=== PATIENT | female | born 1995 ===

== ENCOUNTER → 2024-04-04 14:59 | Outpatient (CLI) | payer BC, SELFPAY | PROVIDERS: Visit Provider Nurse Practitioner Family | DX: R30.0 Dysuria (principal); N94.9 Unspecified condition associated with female genital organs and menstrual cycle | CPT/HCPCS: 87086; 87210 ==

== ENCOUNTER → 2024-05-09 16:22 | Outpatient (CLI) | payer OTHER, SELFPAY | PROVIDERS: PCP Student in an Organized Health Care Education/Training Program; Referring Provider Internal Medicine; Visit Provider Internal Medicine | DX: Z23 Encounter for immunization (principal) | CPT/HCPCS: 90471; 90656 ==

== ENCOUNTER → 2024-07-01 07:04 | Outpatient (CLI) | payer OTHER, SELFPAY ==
--- NOTE | 2024-07-01 | DI.ECHO.S_ITS ---
[place] [facility] : : [address] : : [place] : : [id number] : : Phone: [phone] Echocardiogram Report + + :Name: ALLY HOLLINGSWORTH Study Date: 07/01/2024 Height: 64 in : :[facility] ReadingLocation: Weight: 135 lb : : Gender: Female BSA: 1.7 m2 : :: 1995 Age: 28 yrs BP: 122/84 mmHg: :Reason For Study: CARDIAC MURMUR : :Ordering Physician: : :VIJI LUCIA MD Performed By: Selam Mott : :Referring: VIJI LUCIA : + + Interpretation Summary 1. Normal LV contractility. EF of 55-60%. No WMA. No LVH. Normal diastolic function 2. Normal RV contractility. 3. Normal chamber sizes. 4. Trace to mild MR without obvious prolapse nor structural abnormalities. 5. No obvious intracardiac shunts. 6. No obvious intracardiac masses/thrombi. 7. No hemodynamically significant pericardial effusion. 8. Low right sided filling pressures. Conclusion: Normal biventricular systolic function with trace to mild mitral regurgitation. Procedure: A two-dimensional transthoracic echocardiogram with color flow and Doppler was performed. The study quality was technically good. There is no prior echocardiogram noted for this patient. The patient was in sinus rhythm with heart rates between 59-72 bpm during the exam. Left Ventricle: The left ventricle is normal in size and wall thickness. The ejection fraction is estimated to be 60-65%. Right Ventricle: The right ventricle is normal in size and function. Atria: The left atrial size is normal. Right atrial size is normal. There is no Doppler evidence for an interatrial shunt. Mitral Valve: There is mild mitral regurgitation. Aortic Valve: The aortic valve is trileaflet. The aortic valve opens well. There is no aortic valve stenosis. No aortic regurgitation is present. Tricuspid Valve: The tricuspid valve is normal in structure and function. There is a trace or physiologic amount of tricuspid regurgitation. Pulmonary artery pressures cannot be estimated because of the lack of a measurable TR jet velocity. Pulmonic Valve: The pulmonic valve leaflets are thin and pliable; valve motion is normal. There is trace pulmonic regurgitation. Great Vessels: The aortic root is normal size. The dimensions of the ascending aorta are normal. The IVC is of normal diameter and collapses greater than 50% with a sniff. This suggests a low right atrial pressure of 3 mm Hg. Pericardium/ Pleura There is no pericardial effusion. There is no pleural effusion. MMode/2D Measurements & Calculations LVIDd: 5.1 cm LVOT diam: 2.0 cm LVIDs: 3.5 cm Ao root diam: 2.6 cm FS: 31.1 % asc Aorta Diam: 3.0 cm EPSS: 0.64 cm Ao Arch Diam (Prox Trans): 2.6 cm IVSd: 0.73 cm LVPWd: 0.80 cm LV kaplan. diameter/BSA (cm/m^2): 3.1 LV sys. diameter/BSA (cm/m^2): 2.1 LA A2 area: 15.7 cm2 RA long axis: 3.9 cm LA A4 area: 14.0 cm2 RA area: 12.0 cm2 LA length (vol): 4.2 cm RA vol: 31.8 ml LA vol: 44.3 ml RA : 19.2 ml/m2 LA vol index: 26.7 ml/m2 IVC diam: 1.6 cm RVD1 (basal): 3.0 cm RVD2 (mid): 2.7 cm TAPSE: 2.0 cm Doppler Measurements & Calculations Ao V2 max: 104.3 cm/sec LVOT Max Espinoza: 82.3 cm/sec Ao V2 mean: 75.5 cm/sec LV V1 max P.7 mmHg Ao max P.3 mmHg LV V1 VTI: 15.9 cm Ao mean P.5 mmHg MARLENE(I,D): 2.5 cm2 Ao V2 VTI: 19.5 cm MARLENE(V,D): 2.4 cm2 sev ratio: 0.81 MARLENE indexed to BSA (cm^2/m^2): 1.5 MV E max espinoza: 61.2 cm/sec PA V2 max: 83.1 cm/sec MV A max espinoza: 40.1 cm/sec PA V2 mean: 64.2 cm/sec MV E/A: 1.5 PA mean P.7 mmHg Med Peak E' Espinoza: 10.2 cm/sec PA pr(Accel): 32.8 mmHg E/E' med: 6.0 Lat Peak E' Espinoza: 16.0 cm/sec E/E' lat: 3.8 E/e' average: 4.9 MV dec time: 0.19 sec SV(LVOT): 48.8 ml Reading Physician:
== END ==
PROVIDERS: PCP Student in an Organized Health Care Education/Training Program; Referring Provider Student in an Organized Health Care Education/Training Program; Visit Provider Student in an Organized Health Care Education/Training Program
DX: R01.1 Cardiac murmur, unspecified (principal); I34.0 Nonrheumatic mitral (valve) insufficiency
CPT/HCPCS: 93306